=== PATIENT | female | born 1950 | race Asian ===

== ENCOUNTER 2023-12-27 04:46 | Day surgery (SDC) | payer OTHER ==
[2023-12-25 10:57] VITALS: BMI 28.9
[2023-12-27] MEDS ORDERED: LIDOCAINE HCL/PF 1% SDV 5ML VIAL ONE (07:33)
[2023-12-27] MEDS ORDERED: DEXAMETHASONE SOD PHOSPHATE 10 MG/1 ML VIAL ONE (07:33)
[2023-12-27] MEDS ORDERED: SODIUM CHLORIDE 0.9% P/F 10 ML VIAL IJ ONE (07:41)
[2023-12-27] MEDS ORDERED: ACETAMINOPHEN 500 MG TABLET (FP) PO PRN (09:23)
[2023-12-27 11:22] VITALS: RESP 20
[2023-12-27] MEDS: LIDOCAINE HCL 1% PRESERVATIVE FREE - 30ML VIAL IJ ONE ×2 (13:35)
[2023-12-27] MEDS: IOHEXOL 180 MG/1 ML ML IJ ONE ×2 (13:37)
[2023-12-27] MEDS: DEXAMETHASONE SOD PHOSPHATE 10 MG/1 ML VIAL IM ONE ×2 (13:38)
[2023-12-27 14:43] VITALS: BP 118/65; PULSE 78; TEMP 97.2
== END 2023-12-27 13:54 | disposition home or self-care (01) ==
LOC: JASU-SURG 04:46
PROVIDERS: ATTEND Pain Medicine Pain Medicine
PROC: 3E0R3BZ Introduction of Anesthetic Agent into Spinal Canal, Percutaneous Approach (ICD-10-PCS; 2023-12-27)
PROC: 3E0R33Z Introduction of Anti-inflammatory into Spinal Canal, Percutaneous Approach (ICD-10-PCS; principal; 2023-12-27 13:00)
DX: M54.16 Radiculopathy, lumbar region (principal); M48.061 Spinal stenosis, lumbar region without neurogenic claudication
CPT/HCPCS: 76000-TC-FY; J1100

== ENCOUNTER 2024-01-24 04:09 | Day surgery (SDC) | payer OTHER ==
[2024-01-22 11:24] VITALS: BMI 29.7
[2024-01-24] MEDS ORDERED: LIDOCAINE HCL/PF 1% SDV 5ML VIAL ONE (07:07)
[2024-01-24] MEDS ORDERED: DEXAMETHASONE SOD PHOSPHATE 10 MG/1 ML VIAL ONE (07:07)
[2024-01-24 09:12] VITALS: RESP 20
[2024-01-24] MEDS ORDERED: ACETAMINOPHEN 500 MG TABLET (FP) PO PRN (10:45)
[2024-01-24] MEDS: LIDOCAINE HCL 1% PRESERVATIVE FREE - 30ML VIAL IJ ONE ×2 (10:50→11:06)
[2024-01-24] MEDS: IOHEXOL 180 MG/1 ML ML IJ ONE (10:56)
[2024-01-24] MEDS: DEXAMETHASONE SOD PHOSPHATE 10 MG/1 ML VIAL IVPUSH ONE ×3 (10:58)
[2024-01-24 11:22] VITALS: BP 104/63; PULSE 77; TEMP 97.8
== END 2024-01-24 11:40 | disposition home or self-care (01) ==
LOC: JASU-SURG 04:09
PROVIDERS: ATTEND Pain Medicine Pain Medicine
PROC: 3E0R3BZ Introduction of Anesthetic Agent into Spinal Canal, Percutaneous Approach (ICD-10-PCS; 2024-01-24)
PROC: 3E0R33Z Introduction of Anti-inflammatory into Spinal Canal, Percutaneous Approach (ICD-10-PCS; principal; 2024-01-24 10:45)
DX: M54.16 Radiculopathy, lumbar region (principal)
CPT/HCPCS: 76000-TC-FY; J1100